=== PATIENT | male | born 1975 | race Caucasian/White ===

== ENCOUNTER 2017-04-15 14:12 | Emergency (ER) | payer SELFPAY ==
[2017-04-15 15:11] LABS: Alanine Aminotransferase 46 units/L (7-56); Albumin 4.5 g/dL (3.9-5); Albumin/Globulin Ratio 1.4 %; Alkaline Phosphatase 57 units/L (35-129); Anion Gap 20 mmol/L; Blood Urea Nitrogen 11 mg/dL (9-20); Calcium 9.5 mg/dL (8.4-10.2); Carbon Dioxide 27 mmol/L (22-30); Chloride 98.3 mmol/L (98-107); Glucose 126 mg/dL (75-100); Potassium 4.1 mmol/L (3.6-5.0); Sodium 141 mmol/L (137-145); Total Protein 7.8 g/dL (6.3-8.2)
[2017-04-15 15:34] LABS: Bilirubin,Urine NEG (Negative); Blood,Urine NEG (Negative); Ketones,Urine NEG (Negative); Leukocyte Esterase,Urine NEG (Negative); Mucus,Urine FEW /HPF; Nitrite,Urine NEG (Negative); Urobilinogen,Urine < 2.0 mg/dL (<2.0)
[2017-04-15] MEDS ORDERED: APRESOLINE IV ONE ×2 (20:43→21:29)
--- NOTE | 2017-04-15 20:47 | Emergency Department Report ---
HPI - General Chief Complaint: High BP Time Seen by Provider: 04/15/17 20:16 - HPI HPI: This is a 41-year-old male presents the emergency department with complaint of elevated blood pressure. He went to a employment physical on found have a blood pressure of 230/150 and was referred to the emergency department. The patient admits to some intermittent headaches and lightheadedness over the past month or so. He denies any chest pain, shortness of breath, vision change, fever or any neurological deficits. He was told that he had high blood pressure 1 time when he was in [employer]. Otherwise he does not have a primary care doctor and has no past medical history. He denies tobacco abuse. He does admit to no dietary restrictions and a large amount of caffeine use per day. He has not taken anything for his symptoms prior to presentation. He does not have a primary care doctor. No recent travel or sick contacts at home. ED Past Medical Hx - Past Medical History Previous Medical History?: No - Surgical History Hx Appendectomy: Yes - Social History Smoking Status: Never Smoker Substance Use Type: Alcohol - Medications Home Medications: Home Medications Medication Instructions Recorded Confirmed Last Taken Type hydrALAZINE [Apresoline TAB] 10 mg PO Q8H #90 tablet 04/15/17 Unknown Rx ED Review of Systems ROS: Stated complaint: BP ELEVATED Other details as noted in HPI Comment: All other systems reviewed and negative Constitutional: denies: chills, fever Eyes: denies: eye pain, eye discharge, vision change ENT: denies: ear pain, throat pain Respiratory: denies: cough, shortness of breath, wheezing Cardiovascular: denies: chest pain, palpitations Gastrointestinal: denies: abdominal pain, nausea, diarrhea Genitourinary: denies: urgency, dysuria Musculoskeletal: denies: back pain, joint swelling, arthralgia Skin: denies: rash, lesions Neurological: headache (intermittent). denies: weakness, numbness Physical Exam - Physical Exam Vital Signs: Vital Signs 04/15/17 14:25 Temperature 98.4 F Pulse Rate 100 H Respiratory 17 Rate Blood Pressure 192/124 O2 Sat by Pulse 100 Oximetry Physical Exam: GENERAL: The patient is well-developed well-nourished. HEENT: Normocephalic. Atraumatic. Extraocular motions are intact. Patient has moist mucous membranes. Pupils equal reactive to light bilaterally. NECK: Supple. Trachea is midline. CHEST/LUNGS: Clear to auscultation. There is no respiratory distress noted. HEART/CARDIOVASCULAR: Regular. There is no tachycardia. There is no gallop rub or murmur. ABDOMEN: Abdomen is soft, nontender. Patient has normal bowel sounds. There is no abdominal distention. Obese habitus. SKIN: There is no rash. There is no edema. There is no diaphoresis. NEURO: The patient is awake, alert, and oriented. The patient is cooperative. The patient has no focal neurologic deficits. The patient has normal speech. Cranial nerves II through XII grossly intact. MUSCULOSKELETAL: There is no tenderness or deformity. There is no limitation range of motion. There is no evidence of acute injury. ED Course Vital Signs 04/15/17 14:25 Temperature 98.4 F Pulse Rate 100 H Respiratory 17 Rate Blood Pressure 192/124 O2 Sat by Pulse 100 Oximetry ED Medical Decision Making - Lab Data Result diagrams: 04/15/17 14:40 - EKG Data -: EKG Interpreted by Nv EKG shows normal: sinus rhythm, axis, intervals, QRS complexes (LVH), ST-T waves Rate: tachycardia (102 bpm) - EKG Data When compared to previous EKG there are: previous EKG unavailable Interpretation: LVH - Radiology Data Radiology results: report reviewed CT of the head does not show any acute process including no hemorrhage, mass, shift, diffuse edema or skull fracture. - Medical Decision Making 41-year-old male presents to the emergency department with very elevated blood pressure that was found during a physical examination for a potential new job. Patient has a mild headache but otherwise no other major complaints. He was given dose of hydralazine and a very small amount of pain medication for his headache and by the time discharge came around the blood pressure was down to a normal level. Labs are unremarkable including no renal insufficiency. CT of the head did not show any bleed, shift, mass or any ischemic changes. I discussed with the patient about dietary and lifestyle changes to make to help with his blood pressure. He will be started on low-dose hydralazine 3 times daily and will keep a blood pressure log. He was given multiple referrals for primary care clinics in the area. He will return to the ER if any worsening of symptoms or any acute distress. - Differential Diagnosis hypertensive urgency, etc. hypertension, tension headache, migraine, brain Critical Care Time: No Critical care attestation.: If time is entered above; I have spent that time in minutes in the direct care of this critically ill patient, excluding procedure time. ED Disposition Clinical Impression: Hypertensive urgency Disposition: DC-01 TO HOME OR SELFCARE Is pt being admited?: No Condition: Stable Instructions: Hypertension (ED) Additional Instructions: Please follow-up with a primary care physician. I have prescribed for you a blood pressure medication called hydralazine to be taken 3 times per day. Try to stay away from foods that are high in salt and caffeinated products. Keep a blood pressure log. Return to the emergency department with any worsening of your symptoms or any acute distress. Prescriptions: hydrALAZINE [Apresoline TAB] 10 mg PO Q8H #90 tablet Referrals: PRIMARY CARE, [Primary Care Provider] - 3-5 Days [facility] [place] [Outside] - 3-5 Days [facility] [Outside] - 3-5 Days [facility] [Outside] - 3-5 Days [facility] [Outside] - 3-5 Days Forms: Work/School Release Form(ED) Time of Disposition: 23:40
[2017-04-15] MEDS ORDERED: TYLENOL PO ONE (21:55)
[2017-04-15] MEDS ORDERED: TYLENOL ONE (21:56)
[2017-04-15] MEDS ORDERED: MORPHINE IV ONE (22:08)
[2017-04-15 22:55] VITALS: BP 137/76
--- NOTE | 2017-04-15 23:08 | Cat Scan Report ---
FINAL REPORT PROCEDURE: CT HEAD/BRAIN WO CON TECHNIQUE: Computerized tomography of the head was performed without contrast material. HISTORY: AKERS with HTN COMPARISON: No prior studies are available for comparison. FINDINGS: Skull and scalp: Normal. Paranasal sinuses: Normal. Ventricles and subarachnoid spaces: Normal. Cerebrum: No evidence of hemorrhage, acute infarction or mass . Cerebellum and brainstem: No evidence of hemorrhage, acute infarction or mass. Vasculature: Normal. Comments: None. IMPRESSION: Normal Examination
== END 2017-04-16 00:25 | disposition home or self-care (01) ==
LOC: ED 14:12
DX: I10 Essential (primary) hypertension (principal); R51 Headache
CPT/HCPCS: 36415; 70450; 80053; 81001; 93005; 93010; 96374; 96375; 96376; 99284; J0360; J2270

== ENCOUNTER 2017-12-03 13:27 | Emergency (ER) | payer SELFPAY | END 2017-12-03 14:40 | disposition left against medical advice (07) | LOC: ED 13:27 | DX: Z53.21 Procedure and treatment not carried out due to patient leaving prior to being seen by health care provider (principal) ==